=== PATIENT | male | born 1945 | race Caucasian/White ===

== ENCOUNTER 2023-08-01 13:27 | Inpatient (IN) ==
[2023-08-01] MEDS ORDERED: ONDANSETRON 4 MG/2 ML VIAL IV PRN (14:28)
[2023-08-01] MEDS ORDERED: DEXTROSE 31 GM ORAL.SUSP PO PRN (14:28)
[2023-08-01] MEDS ORDERED: DEXTROSE 50% 50 ML VIAL IV PRN (14:28)
[2023-08-01] MEDS ORDERED: IPRATROPIUM/ALBUTEROL 3 ML AMPUL.NEB NEB PRN (14:28)
[2023-08-01] MEDS ORDERED: ACETAMINOPHEN 325 MG TABLET PO PRN (14:28)
[2023-08-01] MEDS ORDERED: traZODone HCL 50 MG TABLET PO PRN (14:28)
[2023-08-01] MEDS ORDERED: guaiFENesin/DEXTROMETHORPHAN 5ML UD CUP PO PRN (14:34)
[2023-08-01] MEDS: NICOTINE 21 MG PATCH TOPICAL SCH (16:35)
[2023-08-01] MEDS: INSULIN LISPRO 1 UNIT/0.01 ML UNIT SQ SCH ×2 (16:36→20:08)
[2023-08-01] MEDS ORDERED: NITROGLYCERIN 0.4 MG TAB.SUBL SL PRN (18:09)
[2023-08-01] MEDS ORDERED: IBUPROFEN 800 MG TABLET PO PRN (18:09)
[2023-08-01] MEDS: DOCUSATE SODIUM 100 MG CAPSULE PO SCH (20:08)
[2023-08-01] MEDS: SENNOSIDES 1 TABLET PO SCH (20:09)
[2023-08-01] MEDS: 0.9 % SODIUM CHLORIDE 10 ML SYRINGE IV SCH (20:09)
[2023-08-02] MEDS: 0.9 % SODIUM CHLORIDE 10 ML SYRINGE IV SCH ×3 (05:30→20:12)
[2023-08-02 06:48] LABS: Basophils # (Auto) 0.04 K/mcL (0.00-0.30); Basophils % (Auto) 0.6 % (0.0-2.0); Eosinophils # (Auto) 0.12 K/mcL (0.00-0.70); Eosinophils % (Auto) 1.9 % (0.0-7.0); Hematocrit 39.2 % (40.1-51.0); Hemoglobin 12.6 g/dL (13.7-17.5); Lymphocytes # (Auto) 1.35 K/mcL (1.50-4.80); Lymphocytes % (Auto) 20.9 % (15.5-49.0); Mean Cell Volume 101.3 fL (80.0-100.0); Mean Corpuscular HGB Conc 32.1 g/dL (31.0-36.0); Mean Platelet Volume 9.6 fL (8.8-12.5); Monocytes # (Auto) 0.86 K/mcL (0.10-0.90); Monocytes % (Auto) 13.3 % (1.0-12.0); Platelet Count 174 K/mcL (140-440); RBC 3.87 M/mcL (4.63-6.08); Red Cell Distribution Width 13.2 % (11.5-14.5); WBC 6.5 K/mcL (4.5-11.0)
[2023-08-02] MEDS: LEVOTHYROXINE 50 MCG TABLET PO SCH (06:57)
[2023-08-02] MEDS: INSULIN LISPRO 1 UNIT/0.01 ML UNIT SQ SCH ×4 (06:58→20:12)
[2023-08-02 07:23] LABS: ALT/SGPT 15 U/L (<40); AST/SGOT 20 U/L (<40); Albumin 3.3 gm/dL (3.2-5.2); Albumin/Globulin Ratio 1.1 (1.0-2.3); Alkaline Phosphatase 59 U/L (39-117); Bilirubin,Total 0.5 mg/dL (0.1-1.0); Blood Urea Nitrogen 15 mg/dL (8-23); Calcium 8.8 mg/dL (8.6-10.4); Carbon Dioxide 21 mmol/L (22-30); Chloride 105 mmol/L (96-108); Globulin 3.1 gm/dL (2.2-3.7); Glomerular Filtration Rate 89; Glucose 101 mg/dL (70-105)
[2023-08-02] MEDS: ALLOPURINOL 300 MG TABLET PO SCH (08:38)
[2023-08-02] MEDS: LORATADINE 10 MG TABLET PO SCH (08:38)
[2023-08-02] MEDS: DOCUSATE SODIUM 100 MG CAPSULE PO SCH ×2 (08:38→20:08)
[2023-08-02] MEDS: METOPROLOL SUCCINATE 25 MG TAB.XL.24H PO SCH (08:38)
[2023-08-02] MEDS: VITAMIN D3 25 MCG TABLET PO SCH (08:39)
[2023-08-02] MEDS: SIMVASTATIN 40 MG TABLET PO SCH (08:39)
[2023-08-02] MEDS: ASPIRIN 81 MG TAB.CHEW PO SCH (08:39)
[2023-08-02] MEDS: LACTOBACILLUS 1 CAPSULE PO SCH (08:39)
[2023-08-02] MEDS: NICOTINE 21 MG PATCH TOPICAL SCH (09:30)
[2023-08-02] MEDS: SENNOSIDES 1 TABLET PO SCH (20:08)
[2023-08-03] MEDS: 0.9 % SODIUM CHLORIDE 10 ML SYRINGE IV SCH (05:51)
[2023-08-03] MEDS: LEVOTHYROXINE 50 MCG TABLET PO SCH (07:17)
[2023-08-03] MEDS: INSULIN LISPRO 1 UNIT/0.01 ML UNIT SQ SCH ×2 (07:20→11:44)
[2023-08-03] MEDS: DOCUSATE SODIUM 100 MG CAPSULE PO SCH (08:31)
[2023-08-03] MEDS: ALLOPURINOL 300 MG TABLET PO SCH (08:32)
[2023-08-03] MEDS: LACTOBACILLUS 1 CAPSULE PO SCH (08:32)
[2023-08-03] MEDS: VITAMIN D3 25 MCG TABLET PO SCH (08:32)
[2023-08-03] MEDS: SIMVASTATIN 40 MG TABLET PO SCH (08:33)
[2023-08-03] MEDS: LORATADINE 10 MG TABLET PO SCH (08:33)
[2023-08-03] MEDS: METOPROLOL SUCCINATE 25 MG TAB.XL.24H PO SCH (08:33)
[2023-08-03] MEDS: ASPIRIN 81 MG TAB.CHEW PO SCH (08:34)
[2023-08-03] MEDS: NICOTINE 21 MG PATCH TOPICAL SCH (10:03)
== END 2023-08-03 13:43 | disposition home or self-care (01) | DRG 200 ==
LOC: MEDSUR 14:07
PROVIDERS: ADMIT Internal Medicine; ATTEND Internal Medicine